=== PATIENT | female | born 1945 | race Caucasian/White ===

== ENCOUNTER → 2017-06-02 | Outpatient (CLI) | payer OTHER, BC ==
[~2017-06-02] VITALS: Ht 160 cm; Wt 72.1 kg
[~2017-06-02] MED LIST: ASPIR 8181 MG PO; CENTRUM SILVER1 EAC4 PO; CIPRO500 MG PO; FLAGYL500 MG PO; IBUPROFEN 200200 M1 PO; NIGHT TIME SOF1 EACH PO; PRINIVIL20 M1 PO; TYLENOL325 MG PO; ZOCOR20 MG PO
--- NOTE | ~2017-06-02 | P ---
[facility] [place] [address] PROCEDURE REPORT Name: ARIADNA FU Room #: REG [facility]#: [id number] Admission: 06/02/17 Attend Phys: Uvaldo Villanueva MD Discharge: Date of : 47 Report #: [id number] THIS REPORT FOR: //name// CC: JALEN Villanueva BRIEF HISTORY: The patient is a 71-year-old woman with history of ischemic colitis in 2014 with an ischemic ulcer, which was biopsied revealing ischemic changes. She had rectal bleeding at that time. She reports to me that she had an angiogram. I do not have his records, but she reports to me the angiogram was negative. She recently developed recurrent rectal bleeding, which lasted several days. PREOPERATIVE DIAGNOSIS: Recurrent rectal bleeding. POSTOPERATIVE DIAGNOSES: 1. Diminutive polyp at 60 cm. 2. Vljhg-eg-ghbkueef internal hemorrhoids. MEDICATIONS: Deep sedation with propofol per anesthesia. SPECIMEN: Colon polyp. ESTIMATED BLOOD LOSS: 3 mL. PROCEDURE: Colonoscopy to cecum and terminal ileum with biopsy. FINDINGS: Prior to propofol sedation, the procedure of colonoscopy was reviewed with the patient as well as potential risks and its complications. She indicates she understands and desires to proceed. DESCRIPTION OF PROCEDURE: With the patient in left lateral decubitus position, digital examination was completed which revealed no abnormalities. Subsequently, OptixConnect video colonoscope was introduced in the rectum, advanced under direct vision to the cecum. Done with minimal difficulty. The cecum was identified by the ileocecal valve and appendiceal orifice. I was able to visualize the distal segment of terminal ileum, which was inspected and noted to be unremarkable. At that point, scope was withdrawn and careful circumferential views obtained including retroflexing the scope in the ascending colon. Upon slow withdrawal of the scope, the prep was noted to be excellent. The mucosa was within normal limits, normal vascular pattern, normal light reflex. As we withdrew the scope, the mucosa was inspected and noted to be within normal limits. No inflammatory changes were seen. No mucosal abnormalities were noted until we reached the descending colon. At about 60 cm, a diminutive polyp was seen and removed by biopsy. The scope was further withdrawn and no additional abnormalities were seen. In particular, there was no evidence of sigmoid [address] [address] PROCEDURE REPORT Name: ARIADNA FU Room #: REG [facility].#: [id number] Admission: 06/02/17 Attend Phys: Uvaldo Villanueva MD Discharge: Date of : 47 Report #: [id number] diverticular disease. Scope was withdrawn in the rectum and no abnormalities were seen, but upon retroflexion, nqpbw-tq-plmowjkq internal hemorrhoids were seen. Scope was withdrawn. The patient tolerated the procedure well. CONDITION OF THE PATIENT UPON DISCHARGE: Following procedure, the patient drowsy, aroused, conversant and will be discharged home when fully ambulatory. INSTRUCTIONS TO THE PATIENT AND FAMILY AT THE TIME OF DISCHARGE: I do not find ischemic changes on today's examination. No ulcers were seen. No bleeding lesions were seen. The polyp was likely too small to be the source of her recent bleeding. She does, however, have qhnnv-hb-wkttohui internal hemorrhoids, which is the potential source of bleeding. At this point in time, we will follow up on path and if the polyp is an adenomatous, return in 5 years; if not, then 10 years would be indicated. Suggest high fiber diet. She should call or return for followup if she has any further rectal bleeding. She will follow up with Dr. Jalen Lewis. Last colonoscopy was in 2014 for rectal bleeding. Withdrawal time from the cecum was 11 minutes and 37 seconds. <ELECTRONICALLY SIGNED> By: Uvaldo Villanueva MD 06/02/17 [id number] Uvaldo Villanueva MD /nt
--- NOTE | ~2017-06-02 | S ---
[facility] [place] [address] SURGICAL PATH RPT PROCEDURE Name: ARIADNA FU Room #: REG [facility]..#: [id number] Admission: 06/02/17 Date of : 47 Discharge: Report #: [id number] Path Case #: [id number] PATHOLOGY REPORT COLLECTION DATE: 06/02/2017 RECEIVED DATE: 06/02/2017 SUBMITTING PHYS: Dr. Uvaldo Villanueva OTHER PHYS: Dr. Khanh Lewis SPECIMEN(S) RECEIVED: A.Polyp at 60 cm * * * * * * * * * * * * FINAL DIAGNOSIS: A. Polyp at 60 cm: - Inflammatory polyp. PATHOLOGIST: Derrick Whyte M.D. REPORT ELECTRONICALLY SIGNED BY: Derrick Whyte M.D. DATE/TIME: 06/03/2017 08:32 * * * * * * * * * * * * GROSS PATHOLOGY: Received in formalin labeled "polyp at 60 cm" and consists of 4 zamora mucosal biopsies, 0.2 cm. The specimen is totally submitted as A1. (RODRIGUE; 06/02/2017) CLINICAL HISTORY: Colon polyp, hemorrhoids INITIAL CPT CODE(S): A; 35427 Professional services performed by [facility] at [facility] [address], [place] [address] Technical services performed by [facility] at [address] [place] [address], [facility] [address] [address]. [facility] [address] [place] [address] PHONE: [phone] [facility] [address] [place] [address] SURGICAL PATH RPT PROCEDURE Name: ARIADNA FU Room #: REG [facility].#: [id number] Admission: 06/02/17 Date of : 47 Discharge: Report #: [id number] Path Case #: [id number] DIRECTOR: Yomi Jones M.D. * * * END OF REPORT * * *
== END | disposition home or self-care (01) ==
LOC: GI 06:35
DX: K62.5 Hemorrhage of anus and rectum (principal); K51.40 Inflammatory polyps of colon without complications; K64.8 Other hemorrhoids; Z87.891 Personal history of nicotine dependence; I10 Essential (primary) hypertension; E78.5 Hyperlipidemia, unspecified; Z98.890 Other specified postprocedural states
CPT/HCPCS: 62110; 62900